=== PATIENT | female | born 1980 | race African-American/Black ===

== ENCOUNTER 2017-12-17 20:47 | Emergency (ER) | payer MEDICAID ==
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
[2017-12-17] MEDS ORDERED: LORazepam 2 MG/ML INJ IVP ONE (21:09)
[2017-12-17] MEDS ORDERED: NS 1,000 ML IV ONE (21:09)
[2017-12-17 21:19] LABS: PLATELET COUNT 261 10^3/uL (150-400)
[2017-12-18 08:54] VITALS: BP 130/70
== END 2017-12-18 09:14 | disposition still patient (30) ==
DX: F15.90 Other stimulant use, unspecified, uncomplicated (principal); F14.90 Cocaine use, unspecified, uncomplicated; F32.2 Major depressive disorder, single episode, severe without psychotic features; F41.9 Anxiety disorder, unspecified; E86.9 Volume depletion, unspecified
CPT/HCPCS: 80305; 96374; G0480; J2060